=== PATIENT | male | born 1980 | race Caucasian/White ===

== ENCOUNTER 2018-06-10 18:07 | Emergency (ER) | payer MEDICAID, OTHER ==
[~2018-06-10] VITALS: Wt 83.2 kg
[2018-06-11] MEDS ORDERED: ACETAMINOPHEN 325 MG TAB PO ONE (01:30)
[2018-06-11] MEDS ORDERED: LIDOCAINE 1% (MPF) 5 ML VIAL INJ ONE (03:00)
[2018-06-11] MEDS ORDERED: CEFAZOLIN 1 GM INJ IM ONE (03:30)
[2018-06-11] MEDS ORDERED: IBUP-1542 PO (04:53)
[2018-06-11] MEDS ORDERED: CEPH-443 PO (04:53)
[2018-06-11 05:04] VITALS: BP 145/89; PULSE 68; RESP 18
--- NOTE | 2018-06-17 18:50 | ERD ---
ER Documentation Chief Complaint Chief Complaint lac to left 5th digit HPI 38-year-old male patient with no significant past medical history presents to ED complaining of the left hand laceration that occurred on June 11, 2018. Patient reports that he was on the couch yesterday and actually slipped around 9 PM. Adonis eden reports that he is right-handed. Rates his pain a 4 out of 10. Denies any head or neck injuries. Denies any fever, chills, nausea, sensation, loss of range of motion, nausea, vomiting. ROS All systems reviewed and are negative except as per history of present illness. Medications Home Meds Active Scripts Ibuprofen* (Motrin*) 600 Mg Tab, 600 MG PO Q6, #30 TAB Prov:EVANGELINA MARCELO PA-C 06/11/18 Cephalexin* (Keflex*) 500 Mg Capsule, 500 MG PO QID for 7 Days, CAP Prov:EVANGELINA MARCELO PA-C 06/11/18 Allergies Allergies: Coded Allergies: No Known Allergy (Unverified , 05/29/14) PMhx/Soc History of Surgery: No Anesthesia Reaction: No Hx Neurological Disorder: Yes (Seizures) Hx Respiratory Disorders: No Hx Cardiac Disorders: No Hx Psychiatric Problems: No Hx Miscellaneous Medical Probl: Yes (Seasonal Allergies) Hx Alcohol Use: No Hx Substance Use: No Hx Tobacco Use: No Smoking Status: Never smoker FmHx Family History: No diabetes, No coronary disease Physical Exam Vitals Temperature 97.8 Pulse 73 Systolic blood pressure 164 Diastolic blood pressure 100 Respiratory rate 18 O2 sat 99% Physical Exam Const: [id number]-[id number]-[id number], well-nourished. In no acute distress. Head: Atraumatic, normocephalic Eyes: Normal Conjunctiva without injection ENT: Normal external ear, nose and mouth. Neck: Full range of motion. No meningismus. Resp: Clear to auscultation bilaterally. No wheezing, rhonchi, rales, or crackles. No accessory muscle use. No retractions. Cardio: Regular rate and rhythm, no murmurs Skin: No petechiae or rashes Back: No midline tenderness. No CVA tenderness. Ext: No cyanosis, or edema. Cap refill less than 2 seconds. Distal pulses intact bilaterally. 4 cm webspace laceration noted between the fourth and fifth digit of the left hand. Minimal bleeding noted. No laceration of the tendon or visceral utilization of any bony prominences or foreign bodies noted. Full range of motion of the DIP, PIP, MCP joints bilaterally. Neur: Awake and alert. Normal gait and coordination. Muscle strength 5/5. Sensation intact bilaterally. Results 24 hrs Current Medications Medications Dose Sig/Luis Start Time Status Last (Trade) Ordered Route PRN Stop Time Admin Dose Reason Admin 650 mg ONCE ONCE 06/11/18 DC 06/11/18 Acetaminophen PO 01:30 06/11/18 01:28 (Tylenol 01:31 Tab) Lidocaine 5 ml ONCE ONCE 06/11/18 DC (Xylocaine INJ 03:00 06/11/18 1% (Mpf)) 03:01 Cefazolin 1 gm ONCE ONCE 06/11/18 DC 06/11/18 Sodium IM 03:30 06/11/18 03:35 (Ancef) 03:31 Procedures/MDM 38-year-old male patient with no significant past medical history presents to ED complaining of a left hand laceration that occurred at 9 PM. Patient is afebrile and nontoxic-appearing. Patient gave consent to perform laceration repair. Laceration Repair by me: Anesthesia: 5 cc 1% lidocaine locally Location: [Left hand webspace between fourth and fifth digit] Tendon/Joint/Nerves: No injury Foreign body: None detected after copious irrigation and exploration Technique: 9 5-0 Ethilon Simple Interrupted Sutures Complexity: No subcutaneous sutures/mucosal repair/edge excision Post Closure Length: [4] cm IMPRESSION: No evidence of fracture. Patient's bleeding was easily controlled in the department and there is no indication of anemia. Patient is neurovascularly intact. No evidence of compartment syndrome, neurologic injury, vascular injury, open joint, tendon laceration, or foreign body. Patient is appropriate for outpatient follow up. 48 hour wound check. Scar minimization instructions given. Instructed patient to return for suture removal in 7-10 days. Keflex was prescribed to patient for infection prevention. Instructed patient to return to the ED sooner for any worsening symptoms. Follow up with primary care physician in 1-2 days. Patient's questions were answered. Patient understood and agreed with discharge plan. Departure Diagnosis: Primary Impression: Finger laceration Encounter type: initial encounter Finger: unspecified finger Damage to nail status: unspecified Foreign body presence: unspecified Laterality: left Qualified Codes: S61.219A - Laceration without foreign body of unspecified finger without damage to nail, initial encounter Condition: Stable Patient Instructions: Laceration, Hand Referrals: [facility] YOU HAVE RECEIVED A MEDICAL SCREENING EXAM AND THE RESULTS INDICATE THAT YOU DO NOT HAVE A CONDITION THAT REQUIRES URGENT TREATMENT IN THE EMERGENCY DEPARTMENT. FURTHER EVALUATION AND TREATMENT OF YOUR CONDITION CAN WAIT UNTIL YOU ARE SEEN IN YOUR DOCTORS OFFICE WITHIN THE NEXT 1-2 DAYS. IT IS YOUR RESPONSIBILITY TO MAKE AN APPOINTMENT FOR FOLOW-UP CARE. IF YOU HAVE A PRIMARY DOCTOR --you should call your primary doctor and schedule an appointment IF YOU DO NOT HAVE A PRIMARY DOCTOR YOU CAN CALL OUR PHYSICIAN REFERRAL HOTLINE AT IF YOU CAN NOT AFFORD TO SEE A PHYSICIAN YOU CAN CHOSE FROM THE FOLLOWING [facility] [address] [facility]. [facility] [address] [facility] [facility] [address] [facility] [address]. [facility] [address] [facility]. [facility] [address] [facility]. [facility] YOU HAVE RECEIVED A MEDICAL SCREENING EXAM AND THE RESULTS INDICATE THAT YOU DO NOT HAVE A CONDITION THAT REQUIRES URGENT TREATMENT IN THE EMERGENCY DEPARTMENT. FURTHER EVALUATION AND TREATMENT OF YOUR CONDITION CAN WAIT UNTIL YOU ARE SEEN IN YOUR DOCTORS OFFICE WITHIN THE NEXT 1-2 DAYS. IT IS YOUR RESPONSIBILITY TO MAKE AN APPOINTMENT FOR FOLOW-UP CARE. IF YOU HAVE A PRIMARY DOCTOR --you should call your primary doctor and schedule and appointment IF YOU DO NOT HAVE A PRIMARY DOCTOR YOU CAN CALL OUR PHYSICIAN REFERRAL HOTLINE AT . IF YOU CAN NOT AFFORD TO SEE A PHYSICIAN YOU CAN CHOSE FROM THE FOLLOWING [facility] INSTITUTIONS: [facility] [address] [place] [address] [facility] [address] [place] [address] [facility] [address] [place] [address] [facility] URGENT CARE/SPECIALTIES Additional Instructions: Llame al doctor MAANA y jamar zeke KAVEH PARA DENTRO DE 2-3 SOTOMAYOR.Dgale a la secretaria que nosotros le instruimos hacer esta kaveh.Avise o llame si ruiz condicin se empeora antes de la kaveh. Regresa aqui si peor o no mejor. WOUND CHECK:CONSULTE A RUIZ MDICO EN 2 leavitt para chaim RUIZ HERIDA. SUTURE REMOVAL:CONSULTE A RUIZ MDICO PARA SACAR RUIZ PUNTOS.PARA LA RONIT 5-6 leavitt.EN OTRO LUGAR 7-10 leavitt. EVANGELINA MARCELO PA-C Jun 17, 2018 18:50
== END 2018-06-11 05:08 | disposition home or self-care (01) ==
LOC: FTE 18:07
DX: S61.412A Laceration without foreign body of left hand, initial encounter (principal); W18.49XA Other slipping, tripping and stumbling without falling, initial encounter; Y92.9 Unspecified place or not applicable
CPT/HCPCS: 12002; 73130; 96372; 99284; J0690

== ENCOUNTER 2018-06-12 15:47 | Emergency (ER) | payer SELFPAY ==
[~2018-06-12] VITALS: Ht 170.2 cm; Wt 83.9 kg
[~2018-06-12 15:47] MED LIST: CEPH-443 PO; IBUP-1542 PO
[2018-06-12 15:53] VITALS: BP 135/76; PULSE 70; RESP 18; Ht 170.2 cm; Wt 83.9 kg
--- NOTE | 2018-06-12 16:37 | ERD ---
ER Documentation Chief Complaint Chief Complaint left 5th digit 2 day wound check HPI 38-year-old male presents for recheck on the left hand laceration sustained 2 days ago. He has no restricted range of motion, weakness or fevers and pain is improved. ROS All systems reviewed and are negative except as per history of present illness. Medications Home Meds Active Scripts Ibuprofen* (Motrin*) 600 Mg Tab, 600 MG PO Q6, #30 TAB Prov:EVANGELINA MARCELO PA-C 06/11/18 Cephalexin* (Keflex*) 500 Mg Capsule, 500 MG PO QID for 7 Days, CAP Prov:EVANGELINA MARCELO PA-C 06/11/18 Allergies Allergies: Coded Allergies: No Known Allergy (Unverified , 05/29/14) PMhx/Soc History of Surgery: No Anesthesia Reaction: No Hx Neurological Disorder: Yes (Seizures) Hx Respiratory Disorders: No Hx Cardiac Disorders: No Hx Psychiatric Problems: No Hx Miscellaneous Medical Probl: Yes (Seasonal Allergies) Hx Alcohol Use: No Hx Substance Use: No Hx Tobacco Use: No FmHx Family History: No diabetes, No coronary disease, No other Physical Exam Vitals Vital Signs Date Temp Pulse Resp B/P (MAP) Pulse Ox O2 O2 Flow FiO2 Time Delivery Rate 06/12/18 97.8 70 18 135/76 97 15:53 (95) Physical Exam Const: No acute distress Head: Atraumatic Eyes: Normal Conjunctiva ENT: Normal External Ears, Nose and Mouth. Neck: Full range of motion. No meningismus. Resp: Clear to auscultation bilaterally Cardio: Regular rate and rhythm, no murmurs Abd: Soft, non tender, non distended. Normal bowel sounds Skin: No petechiae or rashes Back: No midline or flank tenderness Ext: No cyanosis, or edema. Healing laceration left fourth webspace. No erythema, bleeding or discharge. Sutures intact. Neur: Awake and alert Psych: Normal Mood and Affect Procedures/MDM Wound redressed. Patient has a satisfactorily healing laceration left fourth webspace without signs of infection, ischemia or deficits. Discharged home aft er redressing the wound with a 7-day suture removal otherwise sooner for fever , redness, new worsening symptoms. Departure Diagnosis: Primary Impression: Encounter for wound re-check Condition: Stable Patient Instructions: Wound Check, Lac F/U (No Infection) Referrals: NO PRIMARY,CARE PHYSICIAN (PCP) Additional Instructions: Suture removal in 7 days. Recheck sooner for fevers, redness, new symptoms. cheque 7 gilliam para saca los puntos / alonzo. BERHANE ALLEN MD Jun 12, 2018 16:37
== END 2018-06-12 16:49 | disposition home or self-care (01) ==
LOC: FTE 15:47
DX: Z48.01 Encounter for change or removal of surgical wound dressing (principal)
CPT/HCPCS: 99281

== ENCOUNTER 2018-06-19 15:24 | Emergency (ER) | payer SELFPAY ==
[~2018-06-19] VITALS: Ht 175.3 cm; Wt 83.1 kg
[2018-06-19 15:39] VITALS: BP 142/73; PULSE 90; RESP 18; Ht 175.3 cm; Wt 83.1 kg
--- NOTE | 2018-06-19 16:27 | ERD ---
ER Documentation Chief Complaint Chief Complaint Suture removal from left inner hand HPI Patient is a 38-year-old male with no medical problems who presents for suture removal. The patient has no fevers or pus. He had the sutures placed to his left hand on June 10. He has no complaints. ROS All systems reviewed and are negative except as per history of present illness. Medications Home Meds Active Scripts Ibuprofen* (Motrin*) 600 Mg Tab, 600 MG PO Q6, #30 TAB Prov:EVANGELINA MARCELO PA-C 06/11/18 Cephalexin* (Keflex*) 500 Mg Capsule, 500 MG PO QID for 7 Days, CAP Prov:EVANGELINA MARCELO PA-C 06/11/18 Allergies Allergies: Coded Allergies: No Known Allergy (Unverified , 05/29/14) PMhx/Soc Medical and Surgical Hx: pt denies Medical Hx, pt denies Surgical Hx History of Surgery: No Anesthesia Reaction: No Hx Neurological Disorder: Yes (Seizures) Hx Respiratory Disorders: No Hx Cardiac Disorders: No Hx Psychiatric Problems: No Hx Miscellaneous Medical Probl: Yes (Seasonal Allergies) Hx Alcohol Use: No Hx Substance Use: No Hx Tobacco Use: No Smoking Status: Never smoker FmHx Family History: No diabetes Physical Exam Vitals Vital Signs Date Temp Pulse Resp B/P (MAP) Pulse Ox O2 O2 Flow FiO2 Time Delivery Rate 06/19/18 98.7 90 18 142/73 97 15:39 (96) Physical Exam Const: No acute distress Head: Atraumatic Eyes: Normal Conjunctiva ENT: Normal External Ears, Nose and Mouth. Neck: Full range of motion. No meningismus. Resp: Clear to auscultation bilaterally Cardio: Regular rate and rhythm, no murmurs Abd: Soft, non tender, non distended. Normal bowel sounds Skin: Incision to the left hand has no sign of infection, a few of the stitches have opened and there is some edges that have pulled apart of the wound given that it is over the joint crease Back: No midline or flank tenderness Ext: No cyanosis, or edema Neur: Awake and alert Psych: Normal Mood and Affect Procedures/MDM Suture Removal by me: Sutures removed with tweezers and scissors without incident. Wound shows no evidence of infection, foreign body, neurologic injury, vascular injury, open joint or tendon laceration. Patient to follow up PRN. Departure Diagnosis: Primary Impression: Encounter for removal of sutures Condition: Fair Patient Instructions: Suture Removal, No Complication Referrals: Your doctor Additional Instructions: Llame al doctor nompeter marshall (Referral Sources) MAANA y jamar zeke KAVEH PARA DENTRO DE ZEKE SEMANA. Dgale a la secretaria que nosotros le instruimos hacer esta kaveh.Avise o llame si chery condicin se empeora antes de la kaveh. EMBER DEWITT MD Jun 19, 2018 16:27
== END 2018-06-19 16:56 | disposition home or self-care (01) ==
LOC: E/R 15:24
DX: Z48.02 Encounter for removal of sutures (principal)
CPT/HCPCS: 99281